=== PATIENT | male | born 1955 | race Caucasian/White ===

== ENCOUNTER 2017-04-24 16:38 | Emergency (ER) | payer OTHER ==
[~2017-04-24] VITALS: Ht 182.9 cm; Wt 117.9 kg
[2017-04-24 16:44] VITALS: BP_SYST 167
[2017-04-24 17:35] LABS: BASOPHILS # (AUTO) 0.2 K/uL (0.0-0.2); EOSINOPHILS # (AUTO) 0.1 K/uL (0.0-0.4); EOSINOPHILS % (AUTO) 0.5 % (0.0-4.0); HEMATOCRIT 49.2 % (36-54); HEMOGLOBIN 16.3 g/dL (14.0-18.0); LYMPHOCYTES # (AUTO) 1.3 K/uL (1.0-5.5); LYMPHOCYTES % (AUTO) 8.1 % (20.5-51.5); MEAN CORPUSCULAR HEMOGLOBIN 30 pg (27-31); MEAN CORPUSCULAR HGB CONC 33 % (32-36); MEAN CORPUSCULAR VOLUME 91 fL (79.0-98.0); MONOCYTES % (AUTO) 6.2 % (1.7-9.3); NEUTROPHILS % (AUTO) 84.2 % (40.0-70.0); PLATELET COUNT (AUTO) 231 K/uL (130-430); RED BLOOD CELL COUNT(AUTO) 5.38 MIL/uL (4.2-6.2); RED CELL DISTRIBUTION WIDTH 12.3 % (9.0-15.0); WHITE BLOOD COUNT (AUTO) 15.6 K/uL (4.8-10.8)
[2017-04-24 17:41] LABS: CALCIUM 9.5 mg/dL (8.4-11.0); CREATININE 1.16 mg/dL (0.55-1.30); POTASSIUM 3.8 mmol/L (3.5-5.1)
[2017-04-24 17:46] LABS: ALBUMIN 4.7 g/dL (3.4-4.8); TOTAL BILIRUBIN 1.4 mg/dL (0.0-1.0); TOTAL PROTEIN, SERUM 8.7 g/dL (6.4-8.3)
[2017-04-24 17:52] LABS: BILIRUBIN,URINE 1+ (NEGATIVE); BLOOD, URINE 3+ (NEGATIVE); CLARITY/URINE CLOUDY (CLEAR); COLOR,URINE YELLOW (YELLOW); GLUCOSE,URINE NEGATIVE (NEGATIVE); KETONES,URINE TRACE (NEGATIVE); LEUKOCYTE ESTERASE ,URINE 2+ (NEGATIVE); NITRITE, URINE POSITIVE (NEGATIVE); PROTEIN URINE 2+ (NEGATIVE)
[2017-04-24 17:55] LABS: BACTERIA,URINE MODERATE /HPF (None Seen); WBC,URINE 50-80 /HPF (0-3)
[2017-04-24 17:56] LABS: MUCUS,URINE 2+ /LPF (None Seen)
[2017-04-24] MEDS ORDERED: NACL 0.9% 1,000 ML IV ONE (18:00)
[2017-04-24] MEDS ORDERED: LEVOFLOXACIN 500 MG/D5W 100 ML IV ONE (18:15)
[2017-04-24] MEDS ORDERED: KETOROLAC TROMETHAMINE 30 MG VIAL IVP ONE (18:15)
[2017-04-24 19:42] VITALS: BP_SYST 152
== END 2017-04-24 19:42 | disposition home or self-care (01) ==
LOC: SED 16:38
DX: N10 Acute pyelonephritis (principal); D72.829 Elevated white blood cell count, unspecified; R74.0 Nonspecific elevation of levels of transaminase and lactic acid dehydrogenase [LDH]; I10 Essential (primary) hypertension
CPT/HCPCS: 36415; 74176; 80053; 81000; 83605; 83690; 85025; 87040; 87086; 87186; 96365; 96375; 99285; J1885; J1956; J7030

== ENCOUNTER 2021-06-14 07:13 | Emergency (ER) | payer OTHER ==
[~2021-06-14] VITALS: Ht 182.9 cm; Wt 97.5 kg
[2021-06-14 07:20] VITALS: BP_SYST 143
--- NOTE | 2021-06-14 07:32 | NUR ---
ER at bedside examining patient.
--- NOTE | 2021-06-14 07:32 | NUR ---
Patient to ER bed 8 to gown for evaluation. Side rails up. Report given to Ruthie VIDALES.
--- NOTE | 2021-06-14 07:33 | NUR ---
Pt. bib with concern of bloody nose last night and this morning, not actively bleeding at this time. Pt. also states has been taking stool softners and been dealing with constipation problems for a couple weeks.
--- NOTE | 2021-06-14 07:46 | NUR ---
Patient transported to radiology via wheelchair, accompanied by staff.
[2021-06-14] MEDS ORDERED: BACI15OI13 TP (08:09)
[2021-06-14] MEDS ORDERED: OXYM15MI9 NS (08:09)
[2021-06-14 08:23] VITALS: BP_SYST 143
--- NOTE | 2021-06-14 08:24 | NUR ---
Patient given written and verbal discharge instructions and verbalizes understanding. ER Dr. Wu discussed with patient the results and treatment provided. Patient in stable condition. ID arm band removed. Rx of Afrin and Bacitracin given. Patient educated on pain management and to follow up with PMD. Pain Scale 0.Opportunity for questions provided and answered.
== END 2021-06-14 08:32 | disposition home or self-care (01) ==
LOC: SED 07:13
DX: K59.00 Constipation, unspecified (principal); R04.0 Epistaxis; I10 Essential (primary) hypertension
CPT/HCPCS: 74018; 99283